=== PATIENT | female | born 1985 ===

== ENCOUNTER 2017-06-07 10:07 | Emergency (ER) | payer MEDICAID ==
--- NOTE | 2017-06-07 10:36 | ED PDOC ---
HPI: Abdomen Time Seen by Provider: 06/07/17 10:12 Chief Complaint (Nursing): Back Pain History Per: Patient Onset/Duration Of Symptoms: Days (2) Current Symptoms Are (Timing): Intermittent Episodes Severity: Mild Pain Scale Rating Of: 3 Location Of Pain/Discomfort: RLQ Quality Of Discomfort: Unable To Describe Associated Symptoms: denies: Nausea, Vomiting, Diarrhea, Urinary Symptoms Exacerbating Factors: None Alleviating Factors: None Additional Complaint(s): RLQ abd pain x 2 days. Denies NVD. No urinary sxs. Has had light period x 9 days which is abnormal for her. Abnormal Vaginal Bleeding: Yes Past Medical History Vital Signs: Last Vital Signs Temp 98.2 F 06/07/17 10:27 Pulse 92 H 06/07/17 10:27 Resp 19 06/07/17 10:27 BP 126/76 06/07/17 10:27 Pulse Ox 98 06/07/17 10:36 - Medical History PMH: No Chronic Diseases Denies: Diabetes - Family History Family History: States: Unknown Family Hx - Home Medications Home Medications: Ambulatory Orders Medication Instructions Recorded Clindamycin [Cleocin] 300 mg PO Q6 #28 cap 06/03/15 Ibuprofen [Motrin] 600 mg PO Q8 PRN #20 tab 06/03/15 oxyCODONE/Acetaminophen [Percocet 1 ea PO Q8 PRN #16 tab 06/03/15 5/325 mg Tab] Naproxen [Naprosyn] 500 mg PO Q12H #20 tab 06/07/17 - Allergies Allergies/Adverse Reactions: Allergies Allergy/AdvReac Type Severity Reaction Status Date / Time No Known Allergies Allergy Verified 06/03/15 12:21 Review of Systems ROS Statement: Except As Marked, All Systems Reviewed And Found Negative Constitutional: Negative for: Fever Gastrointestinal: Positive for: Abdominal Pain. Negative for: Nausea, Vomiting , Diarrhea Genitourinary Female: Positive for: Vaginal Bleeding. Negative for: Dysuria, Frequency Physical Exam - Reviewed Nursing Documentation Reviewed: Yes Vital Signs Reviewed: Yes - Physical Exam Appears: Positive for: Non-toxic, No Acute Distress Head Exam: Positive for: ATRAUMATIC, NORMAL INSPECTION, NORMOCEPHALIC Skin: Positive for: Normal Color, Warm, DRY Eye Exam: Positive for: EOMI, Normal appearance, PERRL ENT: Positive for: Normal ENT Inspection Neck: Positive for: Normal, Painless ROM Cardiovascular/Chest: Positive for: Regular Rate, Rhythm Respiratory: Positive for: CNT, Normal Breath Sounds Gastrointestinal/Abdominal: Positive for: Bowel Sounds, Soft, Tenderness (RLQ) Back: Positive for: Normal Inspection Extremity: Positive for: Normal ROM Neurologic/Psych: Positive for: Alert, Oriented - Laboratory Results Result Diagrams: 06/07/17 10:45 06/07/17 10:45 - ECG O2 Sat by Pulse Oximetry: 98 Disposition - Clinical Impression Clinical Impression: Dysmenorrhea - Patient ED Disposition Is Patient to be Admitted: No Counseled Patient/Family Regarding: Studies Performed, Diagnosis, Need For Followup, Rx Given - Disposition Referrals: [facility] [Outside] Disposition: Routine/Home Disposition Time: 13:26 Condition: FAIR Prescriptions: Naproxen [Naprosyn] 500 mg PO Q12H #20 tab Instructions: Dysmenorrhea (ED) Forms: [employer] (Slovak)
[2017-06-07 10:43] VITALS: RESP 19; O2SAT 98; BMI 25.8
[2017-06-07 10:57] LABS: BASO % 0.3 % (0.0-2.0); EOS # 0.1 K/uL (0.0-0.7); EOS % 1.3 % (0.0-4.0); HEMATOCRIT 43.3 % (34.0-47.0); LYMPH # 2.3 K/uL (1.0-4.3); LYMPH % 36.4 % (20.0-40.0); MEAN CORPUSCULAR HEMOGLOBIN 28.3 pg (27.0-31.0); MEAN CORPUSCULAR HGB CONC 33.3 g/dL (33.0-37.0); MEAN PLATELET VOLUME 9.7 fl (7.2-11.7); MONO # 0.4 K/uL (0.0-0.8); MONO % 6.2 % (0.0-10.0); NEUT # 3.5 K/uL (1.8-7.0); NEUT % 55.8 % (50.0-75.0); NRBC % 0.1 % (0.0-0.0); WHITE BLOOD COUNT 6.2 K/uL (4.8-10.8)
[2017-06-07 11:09] LABS: ALB/GLOB RATIO 1.4 (1.0-2.1); ALKALINE PHOSPHATASE 69 U/L (38-126); ALT/SGPT 42 U/L (9-52); AST/SGOT 20 U/L (14-36); BILIRUBIN,TOTAL 0.7 mg/dl (0.2-1.3); BLOOD UREA NITROGEN 11 mg/dl (7-17); CALCIUM 9.1 mg/dL (8.4-10.2); CARBON DIOXIDE 26 mmol/L (22-30); CHLORIDE 104 mmol/L (98-107); GFR AFRICAN-AMERICAN > 60; GLUCOSE,RANDOM 97 mg/dL (65-105); POTASSIUM 3.9 MMOL/L (3.6-5.0); SODIUM 138 mmol/l (132-148); TOTAL PROTEIN 6.8 G/DL (6.3-8.2)
[2017-06-07] MEDS ORDERED: Sodium Chloride 0.9% 50 ML IV ONE (11:53)
[2017-06-07] MEDS ORDERED: Iohexol 300 100 ML IJ ONE (11:53)
--- NOTE | 2017-06-07 12:56 | CT ---
PROCEDURE: CT abdomen pelvis dated 06/07/2017 HISTORY: RLQ pain COMPARISON: None. TECHNIQUE: Contiguous axial images of the abdomen and pelvis performed following intravenous injection of approximately 99 cc Omnipaque 300 contrast material. Coronal and Sagittal reformats generated. Radiation dose: Total exam DLP = 848.63 mGy-cm. This CT exam was performed using one or more of the following dose reduction techniques: Automated exposure control, adjustment of the mA and/or kV according to patient size, and/or use of iterative reconstruction technique. FINDINGS: LOWER THORAX: Minor atelectasis both posterior lower lung fishman. Lung bases are otherwise clear without infiltrate fusion or pneumothorax. Tiny hiatal hernia. Heart size normal. No significant pericardial effusion. LIVER: Liver is enlarged measuring approximately 21.2 cm in CC dimension. Mild diffuse fatty hepatic infiltration. The no obvious hepatic mass or collection. Portal and splenic veins are opacified. . GALLBLADDER AND BILE DUCTS: The gallbladder is physiologically distended. No evidence of intraluminal gallbladder calculi. PANCREAS: Unremarkable. No mass. No ductal dilatation. SPLEEN: Spleen is upper limits of normal/ borderline enlarged measuring approximately 12.3 cm in AP dimension. The. ADRENALS: No adrenal lesions. KIDNEYS AND URETERS: Kidneys demonstrate symmetric nephrograms. No evidence of nephrolithiasis or hydronephrosis. Bilateral extrarenal pelves present. BLADDER: Urinary bladder is incompletely distended which may account for slight thick-walled appearance. Rule out cystitis. REPRODUCTIVE: Tiny calcifications seen in the region the lower vaginal vault region. APPENDIX: What appears represent normal partially air-filled appendix of best seen on axial image number [id number]. No periappendiceal inflammatory changes. Several medium sized lymph nodes right lower quadrant of the abdomen noted; findings could represent mesenteric adenitis. Clinical correlation recommended. BOWEL: Evaluation of the bowel is limited due to the lack of oral contrast material. Stomach is incompletely distended which presumably accounts for slight thick-walled appearance. Visualized loops of small bowel exhibit normal contour and caliber. No evidence of acute mechanical small bowel obstruction. Moderate amount of stool seen within the at cecum and ascending as well as proximal transverse colon suggestive of mild fecal retention/ constipation. Clinical correlation recommended. . No evidence of definitive mural wall thickening. PERITONEUM: Unremarkable. No fluid collection. No free air. LYMPH NODES: As mentioned above, there are multiple small to medium sized lymph nodes right lower quadrant of the abdomen nonspecific. Rule out mesenteric adenitis. . There also several small lymph nodes seen the celiac axis region. VASCULATURE: Unremarkable. No aortic aneurysm. BONES: On minor mild degenerative spondylosis lower thoracic and lumbar spine. OTHER FINDINGS: None. IMPRESSION: No evidence of acute appendicitis. Multiple small to medium sized lymph nodes right lower quadrant of the abdomen nonspecific; rule out mesenteric adenitis. Findings consistent mild constipation. Hepatomegaly with fatty hepatic infiltration.
[2017-06-07 13:41] VITALS: BP 128/76; PULSE 78; TEMP 97.6
== END 2017-06-07 13:41 | disposition home or self-care (01) ==
LOC: H.ER 10:07
DX: N94.6 Dysmenorrhea, unspecified (principal)
CPT/HCPCS: 74177; 80053; 81025; 85025; 99282; Q9967

== ENCOUNTER 2017-09-30 09:00 | Emergency (ER) | payer MEDICAID ==
[2017-09-30 09:06] VITALS: BMI 27.3
[2017-09-30 09:07] VITALS: BP 126/78; PULSE 94; RESP 20; TEMP 97.8; O2SAT 98
[2017-09-30] MEDS ORDERED: Sodium Chloride 0.9% 1,000 ML IV STA (09:36)
--- NOTE | 2017-09-30 09:54 | ED PDOC ---
HPI: Headache Time Seen by Provider: 09/30/17 09:24 Chief Complaint (Nursing): Headache Chief Complaint (Provider): Migraine with nausea and vomiting History Per: Patient History/Exam Limitations: no limitations Onset/Duration Of Symptoms: Days (x2) Current Symptoms Are (Timing): Still Present Additional Complaint(s): Li Amador is a 32 year old female with a past medical history of migraines, high cholesterol, and anxiety presenting to the ED for an evaluation of a persistent migraine associated with nausea, shaking, non-bloody vomiting, and pale skin occurring for 2 days prior to arrival. The patient reports the migraine begins from her forehead and radiates down the right side to the back of her head. She states this is not the worst headache of her life and feels similar to her previous migraines, reporting increased sensitivity to light and an inability to go to work due to her symptoms. The patient also states taking her prescribed medication for her migraine without relief. She denies neck pain , fever, chills, numbness, tingling, chest pain, back pain, diarrhea, abdominal pain, dysuria, urinary frequency, urinary incontinence, or shortness of breath. Of note, the patient states she is 8 days late in her menstrual cycle. PMD: Amish Pedroza MD Past Medical History Reviewed: Historical Data, Nursing Documentation, Vital Signs Vital Signs: Last Vital Signs Temp 97.8 F 09/30/17 09:07 Pulse 94 H 09/30/17 09:07 Resp 20 09/30/17 09:07 BP 126/78 09/30/17 09:07 Pulse Ox 98 09/30/17 09:07 - Medical History PMH: Anxiety, Hyperlipidemia, Migraine Denies: Diabetes - Surgical History Surgical History: No Surg Hx - Family History Family History: States: No Known Family Hx - Home Medications Home Medications: Ambulatory Orders Medication Instructions Recorded Clindamycin [Cleocin] 300 mg PO Q6 #28 cap 06/03/15 Ibuprofen [Motrin] 600 mg PO Q8 PRN #20 tab 06/03/15 oxyCODONE/Acetaminophen [Percocet 1 ea PO Q8 PRN #16 tab 06/03/15 5/325 mg Tab] Naproxen [Naprosyn] 500 mg PO Q12H #20 tab 06/07/17 - Allergies Allergies/Adverse Reactions: Allergies Allergy/AdvReac Type Severity Reaction Status Date / Time No Known Allergies Allergy Verified 06/03/15 12:21 Review of Systems ROS Statement: Except As Marked, All Systems Reviewed And Found Negative Constitutional: Positive for: Other (shaking). Negative for: Fever, Chills Eyes: Positive for: Other (increased sensitivity to light) Cardiovascular: Negative for: Chest Pain Respiratory: Negative for: Shortness of Breath Gastrointestinal: Positive for: Nausea, Vomiting. Negative for: Abdominal Pain , Diarrhea, Constipation, Hematemesis Genitourinary Female: Negative for: Dysuria, Frequency, Incontinence Musculoskeletal: Negative for: Neck Pain, Back Pain Skin: Positive for: Other (pale skin) Neurological: Positive for: Headache (migraine). Negative for: Numbness, Other (no tingling) Physical Exam - Reviewed Nursing Documentation Reviewed: Yes Vital Signs Reviewed: Yes - Physical Exam Appears: Positive for: Non-toxic, No Acute Distress Head Exam: Positive for: ATRAUMATIC, NORMOCEPHALIC Skin: Positive for: Normal Color, Warm, Dry Eye Exam: Positive for: Normal appearance, EOMI, PERRL ENT: Positive for: Normal ENT Inspection Neck: Positive for: Normal, Painless ROM, Supple Cardiovascular/Chest: Positive for: Regular Rate, Rhythm, Chest Non Tender. Negative for: Murmur Respiratory: Positive for: Normal Breath Sounds. Negative for: Respiratory Distress Gastrointestinal/Abdominal: Positive for: Normal Exam, Soft. Negative for: Tenderness Back: Positive for: Normal Inspection. Negative for: L CVA Tenderness, R CVA Tenderness, Vertebral Tenderness Extremity: Positive for: Normal ROM. Negative for: Pedal Edema, Deformity Neurologic/Psych: Positive for: Alert, port engineer II-XII (intact), Oriented (x3). Negative for: Motor/Sensory Deficits - ECG O2 Sat by Pulse Oximetry: 98 (RA) Pulse Ox Interpretation: Normal - Progress ED Course And Treament: 1054: Stable. AAOx3. Pain free. Tolerated PO. Fu with pcp. Same headache as previous migraines. Sees Dr. Ball for it. Medical Decision Making Medical Decision Making: Time: 09:24 Impression: Migraine with nausea and non-bloody vomiting Plan: * ED urine dipstick (POC) * NS 0.9% 1,000 ml IV 1,000 mls/hr * Reglan 10 mg IV * Reevaluation Scribe Attestation: Documented by Smiley Hanley, acting as a scribe for Ray Rodriguez MD. Provider Scribe Attestation: All medical record entries made by the Scribe were at my direction and personally dictated by me. I have reviewed the chart and agree that the record accurately reflects my personal performance of the history, physical exam, medical decision making, and the department course for this patient. I have also personally directed, reviewed, and agree with the discharge instructions and disposition. Disposition - Clinical Impression Clinical Impression: Acute headache - Patient ED Disposition Is Patient to be Admitted: No Counseled Patient/Family Regarding: Studies Performed, Diagnosis, Need For Followup - Disposition Referrals: [facility] [Outside] - 10/01/17 Disposition: Routine/Home Disposition Time: 10:55 Condition: STABLE Additional Instructions: Return if not better in 3 days. Instructions: Acute Headache (ED) Forms: [facility] (Korean), [facility] ED School/Work Excuse
== END 2017-09-30 11:15 | disposition home or self-care (01) ==
LOC: H.ER 09:00
DX: G43.909 Migraine, unspecified, not intractable, without status migrainosus (principal); E78.00 Pure hypercholesterolemia, unspecified; F41.9 Anxiety disorder, unspecified
CPT/HCPCS: 81025; 96360; 99284; J2765; J7040